=== PATIENT | male | born 1980 | race Caucasian/White ===

== ENCOUNTER 2017-03-20 17:44 | Emergency (ER) | payer BC ==
[~2017-03-20] VITALS: Ht 188 cm; Wt 86.5 kg
[2017-03-20 18:14] VITALS: BP 144/86
[2017-03-20 18:27] LABS: BASOPHILS % 0.2 % (0.0-2.0); EOSINOPHILS % 1.1 % (0.0-5.0); HEMATOCRIT. 42.2 % (42.0-52.0); HEMOGLOBIN. 14.8 g/dL (14.0-18.0); LYMPHOCYTES % 49.1 % (20.0-50.0); MEAN CORPUSCULAR HEMOGLOBIN 30.6 pg (28.0-32.0); MEAN CORPUSCULAR VOLUME 87.5 fL (80.0-94.0); MEAN PLATELET VOLUME 8.7 fl (7.4-10.4); MONOCYTES % 8.4 % (2.0-8.0); NEUTROPHILS % 41.2 % (40.0-76.0); PLATELET 129 x1000/uL (130-400); RED BLOOD CELL COUNT 4.82 mill/uL (4.7-6.1); RED CELL DISTRIBUTION WIDTH 13.1 % (11.6-14.6)
[2017-03-20 18:32] LABS: CHLORIDE 102 mEq/L (98-107); INR 1.1; PROTHROMBIN TIME 11.4 sec
[2017-03-20 18:39] LABS: CARBON DIOXIDE 25 mEq/L (21-32)
[2017-03-20 18:41] LABS: TROPONIN I < 0.02 ng/mL (0.00-0.04)
== END 2017-03-20 20:20 | disposition home or self-care (01) ==
LOC: ER 18:24
DX: R20.2 Paresthesia of skin (principal); R03.0 Elevated blood-pressure reading, without diagnosis of hypertension; R07.9 Chest pain, unspecified; H53.8 Other visual disturbances; R53.1 Weakness; R41.0 Disorientation, unspecified
CPT/HCPCS: 36415; 70450; 71010; 80053; 83880; 84484; 85025; 85610; 93005; 99285; Z7610